=== PATIENT | male | born 1995 | race Caucasian/White ===

== ENCOUNTER 2017-12-15 16:09 | Inpatient (IN) | payer OTHER ==
[~2017-12-15] VITALS: Ht 180.3 cm; Wt 68.2 kg
[2017-12-15] MEDS ORDERED: MoRPHine SULFATE 2 MG/ML CARP IV PRN (16:15)
[2017-12-15] MEDS ORDERED: ONDANSETRON INJ 2 MG/ML 2 ML VIAL IV PRN (16:15)
--- NOTE | 2017-12-15 16:28 | DIAGNOSTIC IMAGING REPORT ---
CHEST ONE VIEW PORTABLE CLINICAL HISTORY: 22 years-old Male presenting with pneumothorax. TECHNIQUE: Portable upright AP view of the chest was obtained. COMPARISON: None. FINDINGS: Large bore left pleural drain terminates at the paramediastinal left upper lung. Cardiomediastinal silhouette normal. Focal opacity in the left mid to lower lung. No pleural effusion. Trace left apical pneumothorax. Right lung and pleural space clear. Osseous structures normal. Upper abdomen normal. IMPRESSION: 1. Left pleural drain in place with trace left pneumothorax. 2. Focal opacity in the left mid to lower lung may represent fluid in the fissure, atelectasis, or focal pulmonary contusion. Electronically signed by: Adrian Strong M.D. 12/15/2017 4:27 PM Dictated Date/Time: 12/15/2017 4:25 PM
[2017-12-15] MEDS ORDERED: PATIENT'S ALLERGY INFO NEEDS ENTERED SCH (16:30)
[2017-12-15 16:31] VITALS: BP 117/73; PULSE 86; TEMP 36.7; O2SAT 94
[2017-12-15 16:32] VITALS: BP 117/73; PULSE 86; TEMP 36.7; O2SAT 94; BMI 21.0
--- NOTE | 2017-12-15 16:42 | History and Physical ---
History & Physical Date & Time of Service: Dec 15, 2017 at 16:32 Chief Complaint: Spontaneous Pneumothorax Primary Care Physician: No Doctor, Assigned History of Present Illness Source: patient 22 year old male had left spontaneous pneumothorax in 2016 (August) treated at [facility] with chest tube x 6 days. The tube was removed and he was discharged home. The patient did not have surgery and has been doing well since. Earlier today he developed sudden SOB and pleuritic CP and went to [facility] where he was noted to have left pneumothorax. He had a chest tube placed and was transferred to [facility] for further care. At this time he is resting comfortably in bed. He does note difficulty taking deep breaths as the chest tube is uncomfortable. Past Medical/Surgical History Medical Problems: (1) Spontaneous pneumothorax Family History Brother age 48 of [place] Social History Smoking Status: Never Smoker Drug Use: none Allergies Coded Allergies: No Known Allergies (Unverified , 12/15/17) Review of Systems Constitutional: No chills Eyes: No worsening of vision ENT: No hearing loss Respiratory: + shortness of breath Cardiovascular: + chest pain (pleuritic ) Abdomen: No pain, No nausea, No vomiting, No diarrhea Musculoskeletal: No joint pain Genitourinary - Male: No dysuria Neurologic: No memory loss Psychiatric: No depression symptoms Hematologic / Lymphatic: No abnormal bleeding/bruising Physical Exam General Appearance: WD/WN, no apparent distress Head: normocephalic, atraumatic Eyes: normal inspection, PERRL ENT: normal ENT inspection, hearing grossly normal Neck: supple, no adenopathy Respiratory/Chest: normal breath sounds, no respiratory distress, + decreased breath sounds (respirations limted by chest tube pain ) Abdomen/GI: non tender, soft Extremities/Musculoskelatal: no pedal edema Neurologic/Psych: alert, oriented x 3 Skin: normal color Chest tube is in place and connected to pleur-evac. No air leak noted. No crepitus noted in soft tissue of chest wall. Diagnostics Laboratory Results Labs from [facility] performed--CB showed H/H and platelet count normal. Slight elevation of WBC. PRP showed BUN, Cr, Na, and K all in normal range. Diagnostic Radiology Portable CXR performed upon arrival to [facility]. Chest tube is in position on left side. Only trace apical left pneumothorax is noted. Impression Assessment and Plan 22 year old male with recurrent left spontaneous pneumothorax -keep chest tube in place, alternating suction with water seal -pain control measures (tylenol, toradol, oxycodone, morphine) -as this is second occurrence pt. interested in surgery, timing TBD: -I had lengthy discussion with patient and family outlining surgical procedure as well as expected post-op course and recovery OTHER -records from [facility] requested from August 2016 (pt. was hospitalized there for prior pneumothorax) -will use SCDs for DVT prevention, no chemical means as surgery is planned VTE Prophylaxis Risk Level: Moderate
[2017-12-15] MEDS ORDERED: KETOROLAC TROMETHAMINE 15 MG/ML VIAL ONE (16:51)
[2017-12-15] MEDS: ACETAMINOPHEN IV 1,000 MG in EMPTY BAG 0 ML IV SCH (18:11)
[2017-12-15] MEDS: OXYCODONE HCL IR 5 MG TAB (IMMEDIATE RELEASE) PO PRN (20:31)
[2017-12-15] MEDS: DOCUSATE SODIUM 100 MG CAP PO SCH (20:31)
[2017-12-15 23:32] VITALS: BP 102/64; PULSE 55; TEMP 36.9; O2SAT 99
[2017-12-16] VITALS (8 sets, daily range): BP systolic 105–118; BP diastolic 61–76; PULSE 46–80; TEMP 36.3–36.9; O2SAT 94–99
[2017-12-16] MEDS: D5W AND 1/2NSS 1,000 ML IV SCH ×3 (00:11→23:28)
[2017-12-16] MEDS: KETOROLAC TROMETHAMINE 15 MG/ML VIAL IV. SCH ×4 (00:11→23:27)
[2017-12-16] MEDS: ACETAMINOPHEN IV 1,000 MG in EMPTY BAG 0 ML IV SCH ×3 (01:36→19:32)
[2017-12-16 07:52] LABS: BASO % 0.2 %; BASO ABS # 0.02 K/uL (0-0.2); EOS % 3.1 %; HEMATOCRIT 47.3 % (42-52); IG# 0.02 K/uL (0.00-0.02); LYMPH % 20.3 %; MEAN CELL VOLUME 89.9 fL (80-100); MEAN CORPUSCULAR HEMOGLOBIN 32.3 pg (25-34); MEAN CORPUSCULAR HGB CONC 35.9 g/dl (32-36); MONO % 9.1 %; MONO ABS # 0.89 K/uL (0.11-0.59); NEUT % 67.1 %; PLATELET COUNT 165 K/uL (130-400); RED CELL DISTRIBUTION WIDTH CV 12.4 % (11.5-14.5); RED CELL DISTRIBUTION WIDTH SD 40.7 fL (36.4-46.3); WHITE BLOOD COUNT 9.83 K/uL (4.8-10.8)
[2017-12-16 08:00] LABS: PTT PATIENT 27.4 SECONDS (21.0-31.0)
[2017-12-16 08:23] LABS: CALCIUM 9.2 mg/dl (8.5-10.1); CREATININE 1.01 mg/dl (0.60-1.40); POTASSIUM 3.6 mmol/L (3.5-5.1)
[2017-12-16] MEDS: DOCUSATE SODIUM 100 MG CAP PO SCH ×2 (09:00→20:35)
--- NOTE | 2017-12-16 11:42 | SURGERY PROGRESS NOTE ---
DATE: 12/16/2017 Mr. Mcconnell was seen today. I discussed this case with Dr. Nguyen from [facility] ED yesterday. This is the patient's second left spontaneous pneumothorax in a year. Last year, he was in [place], had a pigtail catheter placed. His pneumothorax recurred and he had essentially complete pneumothorax done at [facility] ED and a large chest tube was placed in the Emergency Room. The patient presents now. We are going to proceed with a thoracoscopic bleb resection. I had a long talk with the patient this morning. He really has no other medical problems. This 5 feet 11 inches, 150 pound male is comfortable, but he does have some discomfort with the tube. We are going to hopefully get him on the schedule later today. He needs a left thoracoscopy with a wedge resection for his blebs. I discussed this in detail with the patient and his significant other.
[2017-12-16] MEDS ORDERED: FENTANYL CITRATE INJ 50 MCG/1 ML 2 ML VIAL IV PRN (15:30)
[2017-12-16] MEDS ORDERED: ATROPINE SULFATE 0.1 MG/ML 5ML SYR IV PRN (15:30)
[2017-12-16] MEDS ORDERED: ONDANSETRON INJ 2 MG/ML 2 ML VIAL IV PRN (15:30)
[2017-12-16] MEDS ORDERED: EpHEDrine SULFATE INJ 50 MG/ML AMP IV PRN (15:30)
--- NOTE | 2017-12-16 15:43 | History & Physical Bridge Note ---
H&P Re-Evaluation Bridge Note: I have examined the patient, reviewed the History & Physical and in the interval since the performance of the History & Physical I have noted the following changes of clinical significance: No changes noted
[2017-12-16] MEDS ORDERED: BUPIVACAINE LIPOSOME 1/3% 266 MG/20 ML VIAL ONE (16:02)
[2017-12-16] MEDS ORDERED: BUPIVACAINE 0.25% 30 ML VIAL ONE (16:03)
[2017-12-16] MEDS ORDERED: SODIUM CHLORIDE 0.9% PF 50 ML VIAL ONE ×3 (16:03→16:09)
[2017-12-16] MEDS ORDERED: MIDAZOLAM HCL 1 MG/ML 2ML VIAL ONE (16:06)
[2017-12-16] MEDS ORDERED: FENTANYL CITRATE INJ 50 MCG/1 ML 2 ML VIAL ONE ×2 (16:08→17:25)
[2017-12-16] MEDS ORDERED: PROPOFOL IV EMULSION 10 MG/ML 20 ML VIAL ONE (16:18)
[2017-12-16] MEDS ORDERED: ONDANSETRON INJ 2 MG/ML 2 ML VIAL ONE (16:18)
[2017-12-16] MEDS ORDERED: DEXAMETHASONE SOD INJ 4 MG/ML VIAL ONE (16:18)
[2017-12-16] MEDS ORDERED: LIDOCAINE HCL 2% 2 ML VIAL (20MG/ML) ONE (16:18)
[2017-12-16] MEDS ORDERED: NEOSTIGMINE METHYLSULFATE 5 MG/5 ML SYR ONE (16:18)
[2017-12-16] MEDS ORDERED: GLYCOPYRROLATE INJ 0.2 MG/ML VIAL ONE (16:18)
[2017-12-16] MEDS ORDERED: CEFAZOLIN SOD 1 GM VIAL ONE (16:19)
[2017-12-16] MEDS ORDERED: ROCURONIUM BROMIDE 10 MG/ML 5 ML VIAL ONE (16:19)
--- NOTE | 2017-12-16 17:10 | OPERATIVE REPORT ---
DATE OF OPERATION: 12/15/2017 NO DICTATION. I attest to the content of the Intraoperative Record and any orders documented therein. Any exception s are noted below.
--- NOTE | 2017-12-16 17:38 | [facility] Post Operative Brief Note ---
Immediate Operative Summary Operative Date Dec 16, 2017. Pre-Operative Diagnosis Left Spontaneous pneumothorax Post-Operative Diagnosis Same plus disfused blebs Procedure(s) Performed Left video Assisted Thoracoscopy, Bleb resection left lower and upper lobe Surgeon DR Saavedra Logistics Program Manager Surgeon(s) Aminah Jamil PA-C Estimated Blood Loss 5 ml Findings Consistent with Post-Op Diagnosis Specimens A. Superior segment Left lower lobe lung B. Left lower lobe C. Bleb left lower lobe D. [place] Left upper lobe E. Parietal Pleural left Anesthesia Type General
--- NOTE | 2017-12-16 18:39 | Anesthesiology Progress Note ---
Anesthesia Post Op Note Date & Time Dec 16, 2017 at 18:38 Vital Signs Pain Intensity: 0.0 Vital Signs Past 12 Hours Date Time Temp Pulse Resp B/P (MAP) Pulse Ox O2 Delivery O2 Flow Rate FiO2 12/16/17 18:25 49 14 107/64 100 Nasal Cannula 2 12/16/17 18:15 62 19 104/63 100 Oxymask 10 12/16/17 18:07 36.3 60 16 108/65 99 Oxymask 10 12/16/17 15:05 Room Air 12/16/17 11:54 36.7 48 22 114/68 (83) 98 Room Air 12/16/17 08:20 96 Room Air 12/16/17 08:03 36.9 50 20 112/76 (88) 96 Room Air 12/16/17 07:30 Room Air Notes Mental Status: alert / awake / arousable, participated in evaluation Pt Amnestic to Procedure: Yes Nausea / Vomiting: adequately controlled Pain: adequately controlled Airway Patency, RR, SpO2: stable & adequate BP & HR: stable & adequate Hydration State: stable & adequate Anesthetic Complications: no major complications apparent
--- NOTE | 2017-12-16 18:42 | DIAGNOSTIC IMAGING REPORT ---
CHEST ONE VIEW PORTABLE CLINICAL HISTORY: bleb stapling dyspnea COMPARISON STUDY: 12/15/2017 FINDINGS: Repositioning of a left chest tube. Small residual left apical pneumothorax with a maximum pleural separation of 10 mm. Minimal atelectasis left base improved from the prior study. Right lung remains clear. IMPRESSION: 1. Interval repositioning of a left-sided chest tube. 2. Small residual left apical pneumothorax with a maximum pleural separation 1 cm. The above report was generated using voice recognition software. It may contain grammatical, syntax or spelling errors. Electronically signed by: Jason Coe M.D. 12/16/2017 6:41 PM Dictated Date/Time: 12/16/2017 6:40 PM
--- NOTE | 2017-12-16 20:41 | OPERATIVE REPORT ---
DATE OF OPERATION: 12/16/2017 PREOPERATIVE DIAGNOSIS: Recurrent left spontaneous pneumothorax. POSTOPERATIVE DIAGNOSIS: Diffuse bleb disease, left lung. PROCEDURE: Left thoracoscopy with excision of blebs and limited pleurectomy of just the cupula. ANESTHESIA: General anesthesia endotracheal intubation. SURGEON: Fidencio Saavedra MD SLATE CUTTER: IVANNA Ann (Mr. Jamil was present for the entire case and was chan the camera. He also closed the skin incisions at the conclusion of the case.) The patient tolerated it well. DESCRIPTION OF PROCEDURE: The patient was brought to the operating room and laid in supine position. General anesthesia was induced. Endotracheal intubation was performed with a single lumen tube. The patient was placed in the right lateral decubitus position. The left chest prepped and draped in usual sterile fashion after his 32-Hebrew chest tube had been removed. He had a fairly generous thoracostomy port. For this reason, after he had been prepped and draped, an appropriate timeout had been called and antibiotics had been given. I placed a #12 Thoracoport through this opening without difficulty. We then placed a 5 mm 30-degree scope to see there were no adhesions. I was surprised to see that he had some isolated blebs on the broad surface of the lower lobe. I wedged out 2 of these. He also had an obvious bleb at the apex of the left upper lobe and I wedged that out also. Also, when I the fissures right where the upper lobe and lower lobe joined, there was an odd air filled sac. It was not a bulla. There were multiple sacs within this. I did not really know what to make of this, so I wedged this out, took a small portion of the lower lobe and wedged this mass out. I also removed a few blebs from the superior segment of the lower lobe with this maneuver. We had no bleeding. I really saw no air leak. I removed a small portion of the pleura bluntly from the cupula so that we would have some adhesions, although I did not want to use talc or any other agents as I thought he is a young man I did not want to subject him to that in case we have to go back in. An Exparel was used as a block to block each of the ports. A 266 mg was mixed with 200 mL of normal saline, and 30 mL of 0.25% Marcaine. We did an intercostal block from the 2nd-11th rib and also injected all of the ports. A 20-Hebrew chest tube was placed through the anterior thoracoscopy port to be placed. This was a 5 mm port. I also placed a 5 mm posterior port. These were used for 5 mm instruments. The stapler was fired through the 12 mm port. At the conclusion of the case, the lung inflated nicely. I really do not see an air leak and we placed saline in the chest. The chest tube was sutured in with heavy silk suture. A 4-0 Monocryl was used in running subcuticular fashion to approximate the wound edges of the posterior 5 mm port and then the large thoracoscopy port was irrigated out and was closed with 0 Vicryl to reapproximate the muscle, 4-0 Monocryl to reapproximate the skin. Antimicrobial dressings were placed. He tolerated it well. He was extubated and transported back to the postanesthesia care unit in stable condition. I attest to the content of the Intraoperative Record and any orders documented therein. Any exception s are noted below.
[2017-12-17] VITALS (10 sets, daily range): BP systolic 100–125; BP diastolic 54–73; PULSE 64–93; TEMP 36.6–37.2; O2SAT 92–97
[2017-12-17] MEDS ORDERED: NURSING DECISION MEDICATION ORDER SCH (01:15)
[2017-12-17] MEDS: ACETAMINOPHEN IV 1,000 MG in EMPTY BAG 0 ML IV SCH (02:01)
--- NOTE | 2017-12-17 07:09 | DIAGNOSTIC IMAGING REPORT ---
CHEST ONE VIEW PORTABLE CLINICAL HISTORY: 22 years-old Male presenting with bleb stapling. TECHNIQUE: Portable upright AP view of the chest was obtained. COMPARISON: 12/16/2017. FINDINGS: A large bore left pleural drain terminates at the left apex. Cardiomediastinal silhouette normal. Suture margins noted at the left lung base and left perihilar region. There has been significant interval increase in size of the now moderate left pneumothorax with a pleural separation of 5.3 cm. Right lung and pleural space clear. No significant subcutaneous emphysema. Osseous structures normal. IMPRESSION: 1. Significant interval increase in size of the now moderate left pneumothorax despite the presence of the left pleural drain. This may suggest an air leak versus bronchopleural fistula. Correlate clinically. The report will be called/faxed according to standard departmental protocol. Electronically signed by: Adrian Strong M.D. 12/17/2017 7:07 AM Dictated Date/Time: 12/17/2017 7:06 AM
[2017-12-17] MEDS: KETOROLAC TROMETHAMINE 15 MG/ML VIAL IV. SCH (08:06)
[2017-12-17] MEDS: DOCUSATE SODIUM 100 MG CAP PO SCH ×2 (08:06→21:00)
[2017-12-17] MEDS: D5W AND 1/2NSS 1,000 ML IV SCH (08:06)
[2017-12-17] MEDS: ENOXAPARIN 40 MG/0.4 ML SYR SQ SCH (08:07)
--- NOTE | 2017-12-17 09:55 | Anesthesiology Progress Note ---
Anesthesia Post Op Note Date & Time Dec 17, 2017 at 09:54 Vital Signs Pain Intensity: 0.0 Vital Signs Past 12 Hours Date Time Temp Pulse Resp B/P (MAP) Pulse Ox O2 Delivery O2 Flow Rate FiO2 12/17/17 08:09 37.0 64 24 103/56 (72) 92 Room Air 12/17/17 05:59 36.6 70 14 110/64 (79) 97 Room Air 12/17/17 04:01 37.2 72 14 100/54 (69) 96 Room Air 12/17/17 03:19 Room Air 12/17/17 02:04 37.1 79 16 116/64 (81) 95 Room Air 12/16/17 23:59 36.9 80 16 105/61 (76) 94 Room Air 12/16/17 23:30 Room Air 12/16/17 22:11 36.8 67 16 118/70 (86) 96 Room Air Notes Mental Status: alert / awake / arousable, participated in evaluation Pt Amnestic to Procedure: Yes Nausea / Vomiting: adequately controlled Pain: adequately controlled Airway Patency, RR, SpO2: stable & adequate BP & HR: stable & adequate Hydration State: stable & adequate Anesthetic Complications: no major complications apparent
[2017-12-17] MEDS: ACETAMINOPHEN 325 MG TAB PO SCH ×3 (10:55→21:49)
--- NOTE | 2017-12-17 12:48 | SURGERY PROGRESS NOTE ---
DATE: 12/17/2017 SUBJECTIVE: Mr. Mcconnell is a 22-year-old who underwent a left thoracoscopy with wedge resection what turned out to be multiple bowel which were fairly isolated in his lower lobe and upper lobe. The pathology is still pending on these. An x-ray this morning shows that he did have an enlarging pneumothorax. It is still not very large and we hooked him back up to suction. He has a small air leak. We are going to stop his IVs and get him up and walking. I have explained to him I wanted him ambulating and being up in the chair. I do not want him sitting in bed. When his air leak stops, we will get him out of the hospital. We have several staple lines in his left pleural cavity. He is draining no fluid from his chest. Overall, I think he looks quite good. We will check another x-ray in the morning.
[2017-12-18] MEDS: ACETAMINOPHEN 325 MG TAB PO SCH ×4 (03:55→20:39)
[2017-12-18 07:09] VITALS: BP 121/72; PULSE 72; TEMP 36.9; O2SAT 93
--- NOTE | 2017-12-18 07:13 | DIAGNOSTIC IMAGING REPORT ---
CHEST ONE VIEW PORTABLE CLINICAL HISTORY: pneumothorax dyspnea COMPARISON STUDY: 12/17/2017 FINDINGS: Moderate increase in volume of a left-sided pneumothorax. Maximum pleural separation superiorly is 6 cm and 2.6 cm laterally. Right lung remains clear. IMPRESSION: Moderate increase in volume of a left sided pneumothorax. Estimated volume is now 50%. The above report was generated using voice recognition software. It may contain grammatical, syntax or spelling errors. Electronically signed by: Jason Coe M.D. 12/18/2017 7:12 AM Dictated Date/Time: 12/18/2017 7:11 AM
[2017-12-18] MEDS: ENOXAPARIN 40 MG/0.4 ML SYR SQ SCH (09:26)
[2017-12-18] MEDS: DOCUSATE SODIUM 100 MG CAP PO SCH ×2 (09:26→20:37)
--- NOTE | 2017-12-18 10:50 | DIAGNOSTIC IMAGING REPORT ---
CHEST ONE VIEW PORTABLE CLINICAL HISTORY: pneumothorax COMPARISON STUDY: 12/19/1999 1817 a.m. FINDINGS: Repositioning of a left-sided chest tube. Incomplete reinflation left hemithorax. Postoperative changes overlying the line left hilum are stable. Minimal atelectasis left base. IMPRESSION: No significant pneumothorax post left chest tube revision The above report was generated using voice recognition software. It may contain grammatical, syntax or spelling errors. Electronically signed by: Jason Coe M.D. 12/18/2017 10:48 AM Dictated Date/Time: 12/18/2017 10:47 AM
[2017-12-18] MEDS: OXYCODONE HCL IR 5 MG TAB (IMMEDIATE RELEASE) PO PRN (14:07)
--- NOTE | 2017-12-18 14:39 | SURGERY PROGRESS NOTE ---
DATE: 12/18/2017 Mr. Mcconnell was seen today. He had a large pneumothorax. I went and looked at his 20-Yi chest tube and it appears to be functioning well. I put him back on suction; there was a horn of air and then he really had very little in the way of an air leak. A repeat chest x-ray showed essentially resolution of the pneumo. He has been ambulating in the hallway. We are going to continue alternating suction and water seal and check a chest x-ray in the morning. We do not have our final pathology back as of yet.
[2017-12-18 15:31] VITALS: BP 122/74; PULSE 85; TEMP 37; O2SAT 96
[2017-12-18 23:00] VITALS: BP 119/70; PULSE 56; TEMP 36.9; O2SAT 97
[2017-12-19 02:18] VITALS: BP 129/78; PULSE 69; TEMP 37; O2SAT 96
[2017-12-19] MEDS: ACETAMINOPHEN 325 MG TAB PO SCH ×4 (02:18→21:33)
[2017-12-19] MEDS: OXYCODONE HCL IR 5 MG TAB (IMMEDIATE RELEASE) PO PRN ×4 (02:18→23:05)
[2017-12-19 07:11] VITALS: BP 114/72; PULSE 76; TEMP 36.9; O2SAT 94
--- NOTE | 2017-12-19 07:17 | DIAGNOSTIC IMAGING REPORT ---
CHEST ONE VIEW PORTABLE HISTORY: pneumothorax COMPARISON: Chest 12/18/2017. FINDINGS: The left chest tube terminates within the upper left hemithorax. Significant increase in size and the moderate to large left pneumothorax. Suture material seen at the left lung base and left lung apex. Linear density at the left lung base favors atelectasis are scarring. No significant midline shift. The heart is normal in size. No pleural effusions. Trace subcutaneous emphysema within the left superior ventricular region is again noted. IMPRESSION: 1. Significant increase in size in the moderate to large left pneumothorax. 2. Left chest tube terminates in the left lung apex. 3. These findings were discussed with the patient's physician, Dr. Saavedra 7:20 AM on 12/19/2017. Electronically signed by: Kip Infante M.D. 12/19/2017 7:25 AM Dictated Date/Time: 12/19/2017 7:14 AM
--- NOTE | 2017-12-19 08:46 | SURGERY PROGRESS NOTE ---
DATE: 12/19/2017 Mr. Mcconnell was seen today. He has no complaints. He is ambulating in the hallway. He is moving his bowels. His pain control has been "fine." He still has a leak, although it is intermittent. He had a larger pneumothorax today on waterseal. I am going to continue alternating it. We will check a chest x-ray in the morning. I think we just need to wait this out. I believe he is probably leaking from his staple lines. We did not see an obvious leak at the time of surgery. There is no bronchial staple line, so I think that given time, this will resolve.
[2017-12-19] MEDS: DOCUSATE SODIUM 100 MG CAP PO SCH ×2 (08:54→21:32)
[2017-12-19] MEDS: ENOXAPARIN 40 MG/0.4 ML SYR SQ SCH (10:24)
[2017-12-19 15:02] VITALS: BP 124/75; PULSE 63; TEMP 36.8; O2SAT 95
[2017-12-19 23:10] VITALS: BP 113/74; PULSE 76; TEMP 36.6; O2SAT 93
[2017-12-20] MEDS: ACETAMINOPHEN 325 MG TAB PO SCH ×4 (05:58→21:34)
[2017-12-20 07:11] VITALS: BP 114/72; PULSE 65; TEMP 37.1; O2SAT 96
--- NOTE | 2017-12-20 07:36 | DIAGNOSTIC IMAGING REPORT ---
CHEST ONE VIEW PORTABLE HISTORY: 22 years-old Male pneumothorax follow-up study in a patient with left pneumothorax COMPARISON: Chest radiograph 12/19/2017 TECHNIQUE: Portable AP view of the chest FINDINGS: Cardiac silhouette is within normal limits in size. Surgical suture material projects about the left lung apex and left lung base. Moderate to large left pneumothorax is again seen, pleural separation of 6.8 cm, previously 7.4 cm. Left apex overlies the posterior left sixth rib. Left-sided chest tube in stable positioning. Bones appear grossly intact. Right lung is clear. No pleural effusion. IMPRESSION: Stable positioning of left-sided chest tube. No significant change of the moderate to large left-sided pneumothorax from comparison study. The above report was generated using voice recognition software. It may contain grammatical, syntax or spelling errors. Electronically signed by: Jose Hogan M.D. 12/20/2017 7:35 AM Dictated Date/Time: 12/20/2017 7:32 AM
[2017-12-20] MEDS: ENOXAPARIN 40 MG/0.4 ML SYR SQ SCH (09:06)
[2017-12-20] MEDS: DOCUSATE SODIUM 100 MG CAP PO SCH ×2 (09:06→21:34)
--- NOTE | 2017-12-20 10:39 | DIAGNOSTIC IMAGING REPORT ---
CHEST ONE VIEW PORTABLE HISTORY: 22 years-old Male pneumothorax follow-up study in a patient with pneumothorax. COMPARISON: Chest radiograph of same day at 6:36 AM TECHNIQUE: Portable AP view of the chest FINDINGS: Cardiac mediastinal and hilar silhouettes are within normal limits. Somewhat lateral positioning of the left-sided chest tube terminating adjacent to the left lung apex. Surgical suture material of the left lung base left lung apex redemonstrated with subsegmental atelectasis/scarring about the lateral left lung base. Decreased size of left pneumothorax, now with pleural separation of 1.3 cm, previously 6.8 cm. Right lung is clear. No overt pulmonary edema. Mild left hemidiaphragm elevation. The bones appear grossly intact. IMPRESSION: Postoperative changes about the left lung with decreased size of the left pneumothorax. The above report was generated using voice recognition software. It may contain grammatical, syntax or spelling errors. Electronically signed by: Jose Hogan M.D. 12/20/2017 10:38 AM Dictated Date/Time: 12/20/2017 10:36 AM
--- NOTE | 2017-12-20 12:28 | SURGERY PROGRESS NOTE ---
DATE: 12/20/2017 Mr. Mcconnell was seen today. I think there may be some problem with his collection chamber. We switched it out, repeated a film, and his pneumothorax is almost gone, although it is on suction. We will check another film in the morning on water seal. He looks quite good. His pneumothorax has essentially resolved. He really does not have much of an air leak now. He has a small occasional bowel if he coughs. We are going to keep the chest tube for the time being, but I am quite pleased with the fact that this looks like more of a mechanical problem.
[2017-12-20] MEDS: OXYCODONE HCL IR 5 MG TAB (IMMEDIATE RELEASE) PO PRN (14:24)
[2017-12-20 15:30] VITALS: BP 108/72; PULSE 78; TEMP 37; O2SAT 96
[2017-12-21 00:15] VITALS: BP 110/67; PULSE 78; TEMP 37.2; O2SAT 96
[2017-12-21] MEDS: OXYCODONE HCL IR 5 MG TAB (IMMEDIATE RELEASE) PO PRN ×2 (02:22→08:22)
[2017-12-21] MEDS: ACETAMINOPHEN 325 MG TAB PO SCH ×4 (02:23→21:35)
[2017-12-21 07:07] VITALS: BP 109/76; PULSE 94; TEMP 36.8; O2SAT 97
[2017-12-21] MEDS: DOCUSATE SODIUM 100 MG CAP PO SCH ×2 (08:23→21:00)
[2017-12-21] MEDS: ENOXAPARIN 40 MG/0.4 ML SYR SQ SCH (08:23)
--- NOTE | 2017-12-21 08:44 | DIAGNOSTIC IMAGING REPORT ---
CHEST 2 VIEWS ROUTINE HISTORY: 22 years-old Male pneumothorax follow-up study in a patient with left-sided spontaneous pneumothorax COMPARISON: Chest radiograph 12/20/2017 at 10:12 AM TECHNIQUE: PA and lateral views of the chest FINDINGS: Left-sided chest tube is again noted with distal tip projecting to the lateral left lung apex. Postoperative changes about the left lung base and left lung apex. Left-sided pneumothorax has mildly increased in size, now with pleural separation of 4.0 cm, previously 1.3 cm. Mild subcutaneous emphysema about the lateral left chest wall. Right lung is clear. No pleural effusion or overt pulmonary edema. No lobar airspace consolidation. The bones of the chest appear grossly intact. IMPRESSION: Postoperative changes about the left lung with mildly increased size of the left-sided pneumothorax. The above report was generated using voice recognition software. It may contain grammatical, syntax or spelling errors. Electronically signed by: Jose Hogan M.D. 12/21/2017 8:42 AM Dictated Date/Time: 12/21/2017 8:41 AM
[2017-12-21 11:06] VITALS: BP 116/76; PULSE 69; TEMP 37.1; O2SAT 96
[2017-12-21 15:30] VITALS: O2SAT 96
[2017-12-21 15:36] VITALS: BP 114/74; PULSE 67; TEMP 36.9; O2SAT 97
[2017-12-21 23:30] VITALS: BP 114/73; PULSE 65; TEMP 36.9; O2SAT 96
[2017-12-22] MEDS: ACETAMINOPHEN 325 MG TAB PO SCH ×4 (03:43→21:49)
[2017-12-22 06:36] VITALS: O2SAT 98
--- NOTE | 2017-12-22 07:20 | DIAGNOSTIC IMAGING REPORT ---
CHEST ONE VIEW PORTABLE CLINICAL HISTORY: Pneumothorax. COMPARISON STUDY: Chest radiograph December 21, 2017. FINDINGS: Left apical chest tube remains in place. Postoperative findings within the left lung are noted. A small to moderate left pneumothorax has mildly decreased in size since exam December 21, 2017. Superior pleural separation measures 3.4 cm. Cardiac size is normal. There is no evidence for pulmonary edema. IMPRESSION: Mild interval decrease in size of a small to moderate left pneumothorax. Left chest tube in place. Electronically signed by: Kamar Aguilera M.D. 12/22/2017 7:19 AM Dictated Date/Time: 12/22/2017 7:17 AM
[2017-12-22 07:34] VITALS: BP 118/68; PULSE 74; TEMP 37; O2SAT 97
[2017-12-22 08:11] VITALS: O2SAT 97
[2017-12-22] MEDS: DOCUSATE SODIUM 100 MG CAP PO SCH ×2 (09:09→20:43)
[2017-12-22] MEDS: ENOXAPARIN 40 MG/0.4 ML SYR SQ SCH (09:10)
[2017-12-22 11:35] VITALS: BP 112/72; PULSE 78; TEMP 37.3; O2SAT 97
--- NOTE | 2017-12-22 13:30 | DIAGNOSTIC IMAGING REPORT ---
CHEST ONE VIEW PORTABLE CLINICAL HISTORY: Pneumothorax. COMPARISON STUDY: Chest radiograph December 22, 2017 at 7:03 AM. FINDINGS: Left chest tube remains in place. A small left pneumothorax has slightly decreased in size since prior exam. Superior pleural separation measures 3.1 cm. A medial component is now visualized. Postoperative findings within the left lung are noted. There is no evidence for pulmonary edema. Cardiomediastinal silhouette is normal. IMPRESSION: Slight decrease in size of a small left pneumothorax. Left chest tube in place. Electronically signed by: Kamar Aguilera M.D. 12/22/2017 1:29 PM Dictated Date/Time: 12/22/2017 1:27 PM
[2017-12-22 14:36] VITALS: Ht 180.3 cm; Wt 68.2 kg
[2017-12-22 15:12] VITALS: BP 110/70; PULSE 75; TEMP 37.1; O2SAT 97
--- NOTE | 2017-12-22 15:45 | SURGERY PROGRESS NOTE ---
DATE: 12/22/2017 He overall looks fine. His chest x-ray today shows that his lung is expanded. We put a Heimlich valve on him and the lung did drop a bit, but he is definitely improved. There is a small air leak which is odd. His pathology is still pending from last week. His chest tube is in good position. It is functioning properly. He has no pain. All of his incisions look good. He is ambulating in the hallway. I am going to see how his x-ray looks tomorrow, and there is a possibility we could discharge him with the Heimlich valve in place.
[2017-12-22 23:00] VITALS: BP 111/70; PULSE 69; TEMP 36.8; O2SAT 97
[2017-12-23] MEDS: ACETAMINOPHEN 325 MG TAB PO SCH ×4 (03:49→21:46)
--- NOTE | 2017-12-23 07:18 | DIAGNOSTIC IMAGING REPORT ---
CHEST ONE VIEW PORTABLE CLINICAL HISTORY: pneumothorax COMPARISON STUDY: 12/22/2017 FINDINGS: Postsurgical changes are present within left hemithorax. The cardiac and mediastinal contours remain stable. A left-sided chest tube is again evident. There is a persistent left apical pneumothorax with a pleural separation of 18 mm. There is a persistent small medial component.[ IMPRESSION: No significant change in the position of the left-sided chest tube. Persistent small left-sided pneumothorax. Electronically signed by: Andrea Bains M.D. 12/23/2017 7:17 AM Dictated Date/Time: 12/23/2017 7:15 AM
[2017-12-23 07:44] VITALS: BP 112/68; PULSE 74; TEMP 36.8; O2SAT 97
[2017-12-23 08:04] VITALS: O2SAT 97
[2017-12-23] MEDS: DOCUSATE SODIUM 100 MG CAP PO SCH ×2 (08:53→21:00)
[2017-12-23] MEDS: ENOXAPARIN 40 MG/0.4 ML SYR SQ SCH (08:53)
[2017-12-23 11:56] VITALS: BP_SYST 118; BP_SYST 142; BP_DIAS 64; BP_DIAS 68; PULSE 68; PULSE 74; TEMP 36.6; TEMP 36.8; O2SAT 96
[2017-12-23 15:44] VITALS: BP 115/73; PULSE 72; TEMP 36.5; O2SAT 97
--- NOTE | 2017-12-23 16:38 | SURGERY PROGRESS NOTE ---
DATE: 12/23/2017 He still has a small air leak, although it is definitely getting better and he has essentially an expanded lung off of suction with just a Heimlich valve. I discussed sending him home with the Heimlich valve. However, he is uncomfortable with this currently. We will see how it looks tomorrow. He still has a small air leak.
[2017-12-23 22:50] VITALS: BP 114/70; PULSE 78; TEMP 36.9; O2SAT 93
[2017-12-24] MEDS: ACETAMINOPHEN 325 MG TAB PO SCH ×4 (03:52→21:45)
[2017-12-24 07:37] VITALS: BP 121/72; PULSE 76; TEMP 36.9; O2SAT 97
[2017-12-24] MEDS: DOCUSATE SODIUM 100 MG CAP PO SCH ×2 (08:46→21:00)
[2017-12-24] MEDS: ENOXAPARIN 40 MG/0.4 ML SYR SQ SCH (08:47)
--- NOTE | 2017-12-24 10:05 | SURGERY PROGRESS NOTE ---
DATE: 12/24/2017 Mr. Mcconnell was seen today on 12/24/2017. He looks fine. He has a Heimlich valve on. It has drained very little fluid. His leak is tiny and intermittent; however, I am afraid to pull his PleurX today. I am going to check a chest x-ray tomorrow. Again, I talked to him about sending him home with the Heimlich valve in place; however, [place] and is uneasy with this. Given that it is so small, will probably be able to remove this in the next day or so.
[2017-12-24 15:32] VITALS: BP 114/72; PULSE 89; TEMP 36.9; O2SAT 98
[2017-12-24 22:49] VITALS: BP 117/68; PULSE 67; TEMP 36.7; O2SAT 97
[2017-12-25] MEDS: ACETAMINOPHEN 325 MG TAB PO SCH ×4 (04:00→21:07)
--- NOTE | 2017-12-25 07:10 | DIAGNOSTIC IMAGING REPORT ---
CHEST ONE VIEW PORTABLE HISTORY: 22 years-old Male chest tube follow-up study in a patient with left-sided chest tube and prior left pneumothorax COMPARISON: Chest radiograph 12/23/2017 TECHNIQUE: Portable AP view of the chest FINDINGS: Left-sided chest tube is in stable positioning terminating at the left lung apex. Surgical suture material of the lateral left lung base and medial right upper lung redemonstrated. Tiny left apical pneumothorax has slightly decreased in size from comparison. It measured in a similar fashion, pleural separation previously measured 1.8 cm, now measures approximately 1.0 cm. Bones of the chest appear grossly intact. IMPRESSION: Postoperative changes about the left lung with stable positioning of left-sided chest tube. Tiny left apical pneumothorax has decreased in size from comparison. The above report was generated using voice recognition software. It may contain grammatical, syntax or spelling errors. Electronically signed by: Jose Hogan M.D. 12/25/2017 7:09 AM Dictated Date/Time: 12/25/2017 7:06 AM
[2017-12-25 07:55] VITALS: BP 113/68; PULSE 67; TEMP 36.8; O2SAT 98
[2017-12-25] MEDS: ENOXAPARIN 40 MG/0.4 ML SYR SQ SCH (09:00)
[2017-12-25] MEDS: DOCUSATE SODIUM 100 MG CAP PO SCH ×2 (09:00→21:00)
[2017-12-25 15:25] VITALS: BP 115/70; PULSE 79; TEMP 36.7; O2SAT 98
--- NOTE | 2017-12-25 16:56 | SURGERY PROGRESS NOTE ---
DATE: 12/25/2017 Mr. Mcconnell was seen today. He looks great. His x-ray essentially shows no pneumothorax. I really have trouble seeing it. His lung appeared to be fully expanded. In addition, he has an intermittent very small air leak. We are going to clamp his tube and probably remove it tomorrow. He does not have a pneumothorax. I am quite pleased with that. His alpha-1 antitrypsin level was 201 with a reference of 83-199, so I would not consider that high. Overall, I think he looks very good. I am hopeful that we will be able to get him out of here quite soon.
[2017-12-25 23:03] VITALS: BP 109/63; PULSE 60; TEMP 36.9; O2SAT 97
[2017-12-26] MEDS: ACETAMINOPHEN 325 MG TAB PO SCH ×2 (03:37→10:00)
--- NOTE | 2017-12-26 07:06 | DIAGNOSTIC IMAGING REPORT ---
CHEST ONE VIEW PORTABLE CLINICAL HISTORY: pneumothorax COMPARISON STUDY: 12/25/2017 FINDINGS: The cardiac and mediastinal contours remain stable. A left-sided chest tube is again visualized. There is a left apical suture line. There is no focal pulmonary consolidation. There is a linear area of scar/atelectasis at the left lung base. There is no pneumothorax.[ IMPRESSION: No change in the position of the left chest tube. No pneumothorax is visualized. Electronically signed by: Andrea Bains M.D. 12/26/2017 7:04 AM Dictated Date/Time: 12/26/2017 7:03 AM
--- NOTE | 2017-12-26 08:36 | DIAGNOSTIC IMAGING REPORT ---
CHEST ONE VIEW PORTABLE CLINICAL HISTORY: Pneumothorax. History of bleb stapling. COMPARISON STUDY: 12/26/2017 FINDINGS: The left-sided chest tube remains unchanged in position. Now evident is a small left apical pneumothorax with a pleural separation of approximately 15 mm. There is no focal pulmonary consolidation.[ IMPRESSION: 1. No change in the position of the left-sided chest tube 2. Interval development of a small left apical pneumothorax Electronically signed by: Andrea Bains M.D. 12/26/2017 8:35 AM Dictated Date/Time: 12/26/2017 8:33 AM
[2017-12-26 08:47] VITALS: BP 110/75; PULSE 59; TEMP 36.5; O2SAT 97
[2017-12-26] MEDS: DOCUSATE SODIUM 100 MG CAP PO SCH (09:00)
[2017-12-26] MEDS: ENOXAPARIN 40 MG/0.4 ML SYR SQ SCH (09:00)
--- NOTE | 2017-12-26 09:10 | Surgery Progress Note ---
Subjective Date of Service: Dec 26, 2017. Pt. resting in bed. He denies CP or SOB. No dyspnea since chest tube clamped. Objective Vitals Date Time Temp Pulse Resp B/P (MAP) Pulse Ox O2 Delivery O2 Flow Rate FiO2 12/26/17 08:47 36.5 59 20 110/75 (87) 97 Room Air 12/25/17 23:53 Room Air 12/25/17 23:03 36.9 60 15 109/63 (78) 97 Room Air 12/25/17 16:00 Room Air 12/25/17 15:25 36.7 79 16 115/70 (85) 98 Room Air Physical Exam General: + well developed, + well nourished, No distress CV: + RRR Pulmonary: + lungs clear, No accessory muscle use, No respiratory distress Neurologic: + alert & oriented x 3 Additional Notes: No crepitus or subcutaneous emphysema noted in chest wall or neck Radiology CXR 1 hour after chest tube clamped--no pneumothorax CXR 3 hours after chest tube clamps shows development of small apical pneumothorax Drains / Tubes chest tube (left chest tube with Heimlich valve--air leak noted after chest tube unclamped) Assessment & Plan 22 year old male with recurrent spontaneous left pneumothorax -pt underwent left VATS with bleb stapling on 12/16/17 -pt. has had pneumothorax of varying degree since surgery with persistent air leak -on 12/22/17 the lung expansion had improved so chest tube was placed to Heimlich valve (air leak continued) -on 12/25/17 air leak noted to be very small and only tiny apical pneumothorax noted on CXR -on 12/26/17: -chest tube clamped and CXR 1 hour later showed no pneumothorax -CXR repeated 3 hours after chest tube clamp and development of small left apical pneumothorax noted -chest tube unclamped and air leak noted with cough -due to today's event, will proceed as follows: -chest tube will not be removed -will un-clamp chest tube and keep on Heimlich valve -will repeat CXR this afternoon to see if lung fully re-expands -I discussed with pt. and that due to the above events it is unlikely that chest tube will be removed tomorrow -will revisit the topic of discharge home with Heimlich valve in place during tomorrow's visit -encouraged continue use of IS, deep breathing and coughing, as well as ambulation OTHER -lovenox in place for DVT prevention
[2017-12-26 11:48] VITALS: BP 110/85; PULSE 76; TEMP 36.8; O2SAT 96
--- NOTE | 2017-12-26 12:48 | DIAGNOSTIC IMAGING REPORT ---
CHEST ONE VIEW PORTABLE CLINICAL HISTORY: pneumothorax COMPARISON STUDY: 12/26/2017 FINDINGS: The left-sided chest tube remains unchanged in position. There is a small left apical pneumothorax unchanged in size. There is no focal pulmonary consolidation. There is a stable area of linear atelectasis/scarring at left lung base. Suture material is visualized within the left upper lung zone.[ IMPRESSION: 1. No change the position of left-sided chest tube 2. No change in the size of the small left apical pneumothorax Electronically signed by: Andrea Bains M.D. 12/26/2017 12:47 PM Dictated Date/Time: 12/26/2017 12:45 PM
[2017-12-26 15:14] VITALS: BP 110/85; PULSE 76; TEMP 36.8; O2SAT 96
[2017-12-26] MEDS ORDERED: TYLOTC325 PO (15:14)
[2017-12-26] MEDS ORDERED: IBUP-1050 PO (15:14)
--- NOTE | 2017-12-26 15:17 | Discharge Instructions ---
Discharge Instructions Date of Service Dec 26, 2017. Admission Reason for Admission: Spontaneous Pneumothorax Discharge Discharge Diagnosis / Problem: Spontaneous Pneumothorax Discharge Goals Goal(s): Decrease discomfort, Increase independence Activity Recommendations Activity Limitations: as noted below Lifting Limitations: none Shower/Bathe: keep incision dry 1. Do not fly until cleared to do so by Dr. Saavedra. . Instructions / Follow-Up Instructions / Follow-Up 1. Office appointment with Bob Jamil PA-C on Thursday, December 28, 2017 @ 10:00. Go to hospital 1 hour prior to appointment to have a chest x-ray taken. 2. You may drain collection chamber on end of chest tube if it fills up. Record the amount if you empty it. 3. Do not let chest tube become kinked. 4. Dr. Saavedra's office is at [address] [facility] in [place]. Current Hospital Diet Patient's current hospital diet: Regular Diet Discharge Diet Recommended Diet: Regular Diet Procedures Procedures Performed: Left video Assisted Thoracoscopy, Bleb resection left lower and upper lobe Pending Studies Studies pending at discharge: no Medical Emergencies . Who to Call and When: Medical Emergencies: If at any time you feel your situation is an emergency, please call 911 immediately. . Non-Emergent Contact Non-Emergency issues call your: Surgeon Call Non-Emergent contact if: you have a fever, your pain is not controlled, wound has increased drainage . "Provider Documentation" section prepared by Damián Jamil. .
[2017-12-26 15:29] VITALS: BP 110/82; PULSE 74; TEMP 36.6; O2SAT 97
--- NOTE | 2017-12-26 19:52 | Discharge Summary ---
Discharge Summary Date of Service Dec 26, 2017. Discharge Summary Admission Date: Dec 15, 2017 at 16:09 Discharge Date: Dec 26, 2017 Discharge Disposition: Home Principal Diagnosis: Recurrent left spontaneous pneumothorax Procedures: Left VATS with bleb stapling Medication Reconciliation New Medications: Acetaminophen (Tylenol) 325 Mg Tab 650 MG PO Q6H PRN for Pain for 30 Days, 0 Refills Ibuprofen (Advil) 200 Mg Tab 400 MG PO Q6 PRN for Pain for 30 Days, #240 TAB Discharge Exam Incisions inspected and noted to be healing well without drainage, erythema, or signs of infection Chest tube is in place with Heimlich valve and noted to be patent and functioning well. Insertion site is without erythema, drainage, or signs on infection Chest wall and neck examined and no crepitus or subcutaneous emphysema noted Review of Systems: Constitutional: No fever, No chills Respiratory: No cough, No shortness of breath Cardiovascular: No chest pain Abdomen: No pain, No nausea, No vomiting Physical Exam: General Appearance: WD/WN, no apparent distress Neck: supple Respiratory/Chest: lungs clear, normal breath sounds, no respiratory distress Cardiovascular: regular rate, rhythm Abdomen / GI: non tender, soft Extremities: no calf tenderness Neurologic/Psychiatric: alert, oriented x 3 Skin: normal color Hospital Course 22 year old male with recurrent spontaneous left pneumothorax -pt. had chest tube inserted at [facility] and eas transferred to [facility] on 12/15/17 -pt underwent left VATS with bleb stapling on 12/16/17 -pt. noted to have pneumothorax of varying degree following surgery with persistent air leak -on 12/22/17 the lung expansion had improved so chest tube was placed to Heimlich valve (continued air leak noted) -on 12/25/17 air leak noted to be very small and only tiny apical pneumothorax noted on CXR -on 12/26/17: -chest tube clamped and CXR 1 hour later showed no pneumothorax -CXR repeated 3 hours after chest tube clamped and development of small left apical pneumothorax noted -chest tube unclamped and air leak noted with cough -repeat CXR approximately 3 hours after chest tube unclamped showed only small apical pneumothorax -lengthy discussion with patient and at bedside: -ideally air leak should be resolved x 48 hours prior to removing chest tube -option to go home with Heimlich valve and close outpt. follow-up offered and pt. felt comfortable with this -use of IS, deep breathing and coughing, as well as ambulation continually encouraged throughout hospital stay -pt. had good pain control post-op, not requiring any narcotic pain mediations OTHER -lovenox utilized for DVT prevention -pt. will follow up with Bob Jamil PA-C in the am on 12/28/17 with repeat CXR Total Time Spent: Greater than 30 minutes This includes examination of the patient, discharge planning, medication reconciliation, and communication with other providers. Discharge Instructions Please refer to the electronic Patient Visit Report (Discharge Instructions) for additional information. Follow-Up Bob Jamil PA-C with [facility] of [facility] on 12/28/17 in am with repeat CXR
== END 2017-12-26 15:30 | disposition home or self-care (01) | DRG 165 ==
LOC: C.MSN 16:09
PROVIDERS: ADMIT Surgery; ATTEND Surgery
PROC: 0W9830Z Drainage of Chest Wall with Drainage Device, Percutaneous Approach (ICD-10-PCS; principal; 2017-12-16 11:00)
PROC: 0BBP4ZZ Excision of Left Pleura, Percutaneous Endoscopic Approach (ICD-10-PCS; principal; 2017-12-16 11:00)
PROC: 0BBG4ZZ Excision of Left Upper Lung Lobe, Percutaneous Endoscopic Approach (ICD-10-PCS; principal; 2017-12-16 11:00)
PROC: 0BBJ4ZZ Excision of Left Lower Lung Lobe, Percutaneous Endoscopic Approach (ICD-10-PCS; principal; 2017-12-16 11:00)
PROC: 0WP8X0Z Removal of Drainage Device from Chest Wall, External Approach (ICD-10-PCS; principal; 2017-12-16 11:00)
DX: J93.11 Primary spontaneous pneumothorax (principal); J43.9 Emphysema, unspecified; J95.812 Postprocedural air leak; Z87.09 Personal history of other diseases of the respiratory system

== ENCOUNTER → 2017-12-28 | Outpatient (CLI) | payer OTHER ==
[~2017-12-28] MED LIST: IBUP-1050 PO; TYLOTC325 PO
--- NOTE | 2017-12-28 09:39 | DIAGNOSTIC IMAGING REPORT ---
CHEST 2 VIEWS ROUTINE CLINICAL HISTORY: PNEUMOTHORAX COMPARISON STUDY: 12/18/2017 FINDINGS: The cardiac and mediastinal contours remain stable. Postsurgical changes are present within the left hemithorax. The left-sided chest tube is unchanged in position. There is been a slight interval increase in the size of the left apical pneumothorax which has a pleural separation of 2 cm. Within the left midlung zone laterally, there is a small opacity which appears to contain a small air-fluid level. This may represent a tiny loculated hydropneumothorax. The right lung is clear.[ IMPRESSION: 1. Developing peripheral 22 mm left midlung zone opacity, possibly representing a tiny loculated hydropneumothorax 2. Slight increase in the size of a left apical pneumothorax which has a pleural separation of 20 mm. 3. No change in the position of the left-sided chest tube. Electronically signed by: Andrea Bains M.D. 12/28/2017 9:37 AM Dictated Date/Time: 12/28/2017 9:32 AM
== END | disposition home or self-care (01) ==
LOC: C.RAD 09:07
PROVIDERS: ATTEND Physician Assistant
DX: J93.9 Pneumothorax, unspecified (principal)

== ENCOUNTER → 2018-01-04 | Outpatient (CLI) | payer OTHER ==
--- NOTE | 2018-01-04 13:46 | DIAGNOSTIC IMAGING REPORT ---
TWO VIEW CHEST CLINICAL HISTORY: Follow-up pneumothorax. FINDINGS: PA and lateral chest radiographs are compared to study dated 12/28/2017. The cardiomediastinal silhouette is unremarkable. There is no airspace consolidation or pleural effusion. A chest tube at the left apex is unchanged in position. There is a trace residual left apical pneumothorax, with approximately 1 cm of apical pleural separation. No right-sided pneumothorax is seen. Suture material projects over the left lower lung. The bony thorax appears intact. IMPRESSION: 1. A left-sided chest tube is unchanged in position. There is a trace residual left apical pneumothorax, modestly decreased in size from 12/28/2017. 2. No airspace consolidation or pleural effusion is seen. Electronically signed by: Jacob Feliciano M.D. 01/04/2018 1:44 PM Dictated Date/Time: 01/04/2018 1:43 PM
--- NOTE | 2018-01-04 15:14 | DIAGNOSTIC IMAGING REPORT ---
CHEST 2 VIEWS ROUTINE CLINICAL HISTORY: PNEUMOTHORAX ([id number]) ([id number]) COMPARISON STUDY: 01/04/2018 1:37 PM FINDINGS: Very small residual left apical pneumothorax. Maximum pleural separation 7 mm. Lungs otherwise appear clear. IMPRESSION: Minimal residual left apical pneumothorax with pleural separation of 7 mm. The above report was generated using voice recognition software. It may contain grammatical, syntax or spelling errors. Electronically signed by: Jason Coe M.D. 01/04/2018 3:13 PM Dictated Date/Time: 01/04/2018 3:12 PM
== END | disposition home or self-care (01) ==
LOC: C.RAD 13:03
PROVIDERS: ATTEND Physician Assistant
DX: J93.9 Pneumothorax, unspecified (principal)